=== PATIENT | male | born 1980 | race African-American/Black ===

== ENCOUNTER 2021-08-02 13:08 | Emergency (ER) | payer SELFPAY ==
[~2021-08-02] VITALS: Ht 182.9 cm; Wt 79.4 kg
== END 2021-08-02 15:25 | disposition home or self-care (01) ==
LOC: ED 13:08
DX: U07.1 COVID-19 (principal); F17.200 Nicotine dependence, unspecified, uncomplicated
CPT/HCPCS: 71045; 99285-25; C9803; U0003